=== PATIENT | female | born 1965 | race Caucasian/White ===

== ENCOUNTER 2024-02-21 15:02 | Emergency (ER) | payer MEDICARE, OTHER ==
[~2024-02-21] VITALS: Ht 177.8 cm; Wt 77.1 kg
[2024-02-21 18:12] LABS: BASOPHILS # (AUTO) 0.1 K/UL (0.0-0.2); EOSINOPHILS # (AUTO) 0.1 K/uL (0.0-0.7); HEMATOCRIT 44.4 % (31.2-41.9); HEMOGLOBIN 14.9 g/dL (10.9-14.3); LYMPHOCYTES # (AUTO) 1.3 K/uL (0.8-4.8); LYMPHOCYTES % (AUTO) 19.7 % (20.5-51.5); MEAN CORPUSCULAR HEMOGLOBIN 29.4 uug (24.7-32.8); MEAN CORPUSCULAR HGB CONC 33 g/dL (32.3-35.6); MEAN CORPUSCULAR VOLUME 87.9 fL (75.5-95.3); MONOCYTES # (AUTO) 0.4 K/uL (0.1-1.30); MONOCYTES % (AUTO) 6.2 % (0.0-11.0); NEUTROPHILS # (AUTO) 4.7 K/uL (1.8-8.9); NEUTROPHILS % (AUTO) 72.1 % (38.5-71.5); PLATELET COUNT (AUTO) 254 K/uL (179-408); RED BLOOD CELL COUNT(AUTO) 5.05 MIL/uL (3.63-4.92); RED CELL DISTRIBUTION WIDTH 14.8 % (12.3-17.7); WHITE BLOOD COUNT (AUTO) 6.5 K/uL (3.8-11.8)
[2024-02-21 18:20] LABS: CALCIUM 9.9 mg/dL (8.5-10.1); CREATININE 0.9 mg/dL (0.6-1.3); POTASSIUM 3.3 mmol/L (3.5-5.1)
[2024-02-21 18:28] LABS: DIFFERENTIAL COMMENT 1
[2024-02-21 18:31] LABS: ALBUMIN 4.5 g/dL (3.4-5.0); BILIRUBIN,TOTAL 1.5 mg/dL (0.2-1.0); ETHANOL < 3 MG/DL (0-10); TOTAL PROTEIN, SERUM 8.4 g/dL (6.4-8.2)
[2024-02-21 18:34] LABS: THYROID STIMULATING HORMONE 1.143 mIU/mL (0.358-3.740)
[2024-02-21] MEDS: POTASSIUM CHLORIDE 20 MEQ TAB.PRT.SR PO ONE (19:42)
[2024-02-21] MEDS ORDERED: IBUPROFEN 100 MG/5 ML LIQUID UDC ONE (20:52)
[2024-02-21] MEDS: IBUPROFEN 100 MG/5 ML LIQUID UDC PO ONE (21:10)
[2024-02-21 23:34] VITALS: BP 120/66; O2SAT 98
== END 2024-02-21 23:34 | disposition home or self-care (01) ==
LOC: ER 15:03 → EDBD 15:03 → ER 23:34
DX: F91.9 Conduct disorder, unspecified (principal); Z59.00 Homelessness unspecified
CPT/HCPCS: 36415; 84443; 85025; A4606; A4663; G0480